=== PATIENT | female | born 1935 | race Caucasian/White ===

== ENCOUNTER → 2016-08-04 | Outpatient (CLI) | payer MEDICARE, BC ==
--- NOTE | 2016-08-04 14:49 | PCVCIMAG ---
EXAM: BILATERAL LOWER EXTREMITY ARTERIAL DUPLEX INDICATION: Peripheral Arterial Disease. Leg pain. FINDINGS: Right Leg: Satisfactory arterial waveform in the common femoral and profunda femoral artery and throughout the superficial femoral artery. Previous right popliteal artery stents maintaining good patency. Previous stent proximal anterior tibial artery maintaining satisfactory patency. Moderate restenosis in the right peroneal stent. 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 Left Leg: Satisfactory arterial waveforms in the common femoral and profunda femoral arteries and throughout the superficial femoral artery and popliteal artery. Previous sites of intervention in the left popliteal artery and left tibioperoneal trunk and left anterior tibial artery all maintaining satisfactory patency. Long segment occlusion posterior tibial artery unchanged. IMPRESSION: Previous right popliteal and right anterior tibial artery stents maintaining good patency. Moderate stenosis proximal right peroneal artery and unchanged occlusion right posterior tibial artery. Previous sites of intervention the left popliteal, tibioperoneal trunk, and peroneal arteries are maintaining good patency. Unchanged occlusion left posterior tibial artery. LOC:[id number]
== END | disposition home or self-care (01) ==
LOC: PCVCIMAG 12:50
PROVIDERS: ATTEND Nuclear Medicine Nuclear Cardiology
DX: I73.9 Peripheral vascular disease, unspecified (principal); I25.119 Atherosclerotic heart disease of native coronary artery with unspecified angina pectoris; I48.0 Paroxysmal atrial fibrillation; I77.89 Other specified disorders of arteries and arterioles; I87.2 Venous insufficiency (chronic) (peripheral); I65.23 Occlusion and stenosis of bilateral carotid arteries; E78.5 Hyperlipidemia, unspecified; I11.0 Hypertensive heart disease with heart failure; I50.9 Heart failure, unspecified; Z79.01 Long term (current) use of anticoagulants; Z79.899 Other long term (current) drug therapy; Z95.820 Peripheral vascular angioplasty status with implants and grafts
CPT/HCPCS: 93925; G0463

== ENCOUNTER → 2017-05-03 | Outpatient (CLI) | payer MEDICARE, BC | END | disposition home or self-care (01) | LOC: PCVCIMAG 14:20 | DX: I73.9 Peripheral vascular disease, unspecified (principal); I77.9 Disorder of arteries and arterioles, unspecified; I25.10 Atherosclerotic heart disease of native coronary artery without angina pectoris; I48.0 Paroxysmal atrial fibrillation; I10 Essential (primary) hypertension; I87.2 Venous insufficiency (chronic) (peripheral); E78.00 Pure hypercholesterolemia, unspecified; Z79.899 Other long term (current) drug therapy; Z79.01 Long term (current) use of anticoagulants | CPT/HCPCS: 93925; G0463 ==

== ENCOUNTER → 2017-12-24 | Outpatient (CLI) | payer MEDICARE, BC ==
--- NOTE | 2017-12-24 14:24 | PCVCIMAG ---
EXAM: BILATERAL CAROTID DUPLEX INDICATION: Carotid Occlusive Disease. FINDINGS: Doppler Measurements (centimeters per second): RIGHT: Peak CCA-74, Peak ECA-235, Diastolic ICA-18, Peak ICA-120, ICA/CCA Ratio-1.6. LEFT: Peak CCA-90, Peak ECA-247, Diastolic ICA-23, Peak ICA-120, ICA/CCA Ratio-1.3. RIGHT CAROTID: The carotid bulb has severe plaque. The proximal internal carotid artery shows <40% stenosis. The common carotid artery shows no significant stenosis. The external carotid artery shows 60% stenosis. LEFT CAROTID: The carotid bulb has moderate plaque. The proximal internal carotid artery shows <40% stenosis. The common carotid artery shows no significant stenosis. The external carotid artery shows 70% stenosis. Antegrade flow in both vertebral arteries. IMPRESSION: <40% stenosis of the right internal carotid artery with severe plaque. <40% stenosis of the left internal carotid artery with moderate plaque. LOC:[place] [id number]
--- NOTE | 2017-12-24 16:49 | PCVCIMAG ---
EXAM: BILATERAL LOWER EXTREMITY ARTERIAL DUPLEX INDICATION: Peripheral Arterial Disease. Leg pain. FINDINGS: Right Leg: Common femoral and profunda femoral arteries are patent. Superficial femoral artery and popliteal artery are patent. Previous stent popliteal artery is patent. Previous stent proximal anterior tibial artery is patent. Mid/distal posterior tibial artery is occluded and this is unchanged. Moderate restenosis has developed at the distal margin of the previous stent proximal peroneal artery. Left Leg: Common femoral and profunda femoral arteries are patent. Superficial femoral artery and popliteal artery are patent. Previous site of intervention popliteal artery and proximal anterior tibial artery remains patent. Unchanged occlusion of the posterior tibial artery. Peroneal artery is patent. IMPRESSION: Right popliteal artery and proximal anterior tibial artery stents are patent. Interval development of moderate restenosis distal margin of the right tibioperoneal trunk/peroneal artery stent. Previous sites of intervention left popliteal artery and proximal left anterior tibial artery are patent. Unchanged occlusion of the right left posterior tibial arteries. LOC:[place] [id number]
== END | disposition home or self-care (01) ==
LOC: PCVCIMAG 13:37
PROVIDERS: ATTEND Nuclear Medicine Nuclear Cardiology
DX: I73.9 Peripheral vascular disease, unspecified (principal); I87.2 Venous insufficiency (chronic) (peripheral); I65.23 Occlusion and stenosis of bilateral carotid arteries; I25.10 Atherosclerotic heart disease of native coronary artery without angina pectoris; I10 Essential (primary) hypertension; I89.0 Lymphedema, not elsewhere classified; Z79.01 Long term (current) use of anticoagulants; Z79.899 Other long term (current) drug therapy
CPT/HCPCS: 93880; 93925; G0463

== ENCOUNTER → 2018-09-17 | Outpatient (CLI) | payer MEDICARE, BC ==
--- NOTE | 2018-09-17 10:18 | PCVCIMAG ---
EXAM: BILATERAL LOWER EXTREMITY ARTERIAL DUPLEX INDICATION: Peripheral Arterial Disease. Leg pain. FINDINGS: Right Leg: Common femoral and profunda femoral arteries are patent. Superficial femoral artery and popliteal arteries are patent. Previous popliteal stent maintaining adequate patency. Unchanged occlusion posterior tibial artery. The anterior tibial and peroneal arteries are patent. Previous stent proximal anterior tibial artery is patent. Left Leg: Common femoral and profunda femoral arteries are patent. Superficial femoral artery and popliteal arteries are patent including previous site of intervention in the popliteal artery. Anterior tibial and peroneal arteries remain patent. Unchanged occlusion posterior tibial artery. IMPRESSION: Previous right popliteal and proximal right anterior tibial artery stents are maintaining satisfactory patency. Unchanged occlusion right posterior tibial artery. Previous site of intervention left popliteal artery and anterior tibial arteries are maintaining satisfactory patency. Unchanged occlusion left posterior tibial artery. LOC:[id number]
== END | disposition home or self-care (01) ==
LOC: PCVCIMAG 08:06
PROVIDERS: ATTEND Nuclear Medicine Nuclear Cardiology
DX: I70.203 Unspecified atherosclerosis of native arteries of extremities, bilateral legs (principal); Z88.8 Allergy status to other drugs, medicaments and biological substances
CPT/HCPCS: 93925; G0463